=== PATIENT | male | born 1970 | race Caucasian/White ===

== ENCOUNTER 2018-02-01 14:53 | Outpatient (CLI) | payer BC ==
--- NOTE | 2018-02-01 16:49 | RAD ---
RADIOGRAPH RIGHT SHOULDER THREE VIEWS: 02/01/18 HISTORY: 47-year-old male with severe right shoulder pain and decreased range of motion, for one week, without trauma. FINDINGS: There is an approximately 1 x 0.5 cm calcification in the soft tissues very close to the lateral aspe ct of the humeral head, very close to the greater tuberosity, consistent with HADD. No fracture or di slocation. Degenerative changes at the AC joint and glenohumeral joint are mild. No destructive osseo us lesion. 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 The acute manifestation of this would be calcific tendonitis. POS: ALLI
== END 2018-02-01 14:54 | disposition home or self-care (01) ==
LOC: SCSRAD 14:53
PROVIDERS: ATTEND Family Medicine
DX: M25.511 Pain in right shoulder (principal); M11.011 Hydroxyapatite deposition disease, right shoulder